=== PATIENT | female | born 1960 | race Asian ===

== ENCOUNTER 2019-01-01 11:54 | Emergency (ER) | payer BC ==
[~2019-01-01] VITALS: Ht 152.4 cm; Wt 81.6 kg
--- NOTE | 2019-01-01 12:00 | NUR ---
ER Nurse Note: Patient brought in to ER by ambulance from home due to fall from ladder. Patient alert and oriented x4 and bedridden. Skin clean and intact. Calm and cooperative. No acute distress noted at this time. Rt ankle bleeding actively and bone and muscle visible. pt c/o only mild pain 3/10.
--- NOTE | 2019-01-01 12:16 | NUR ---
ED Nurse Note: x-ray at bedside.
--- NOTE | 2019-01-01 12:32 | NUR ---
ED Nurse Note: another set of x-ray at bedside.
[2019-01-01] MEDS ORDERED: ceFAZolin 1gm/50ml Premix 50 ML IV ONE (12:45)
[2019-01-01] MEDS ORDERED: HYDROcodone/Acetamin 5/325 tab ORAL ONE (12:45)
[2019-01-01 13:42] LABS: HEMATOCRIT 45.1 % (37.0-47.0); HEMOGLOBIN 14.9 G/DL (12.0-16.0); MEAN CORPUSCULAR VOLUME 88 FL (80-99); PLATELET COUNT 198 K/UL (150-450); RED CELL DISTRIBUTION WIDTH 12.4 % (11.6-14.8); WHITE BLOOD COUNT 17.3 K/UL (4.8-10.8)
[2019-01-01] MEDS ORDERED: Morphine Sulfate 2mg/ml Inj(IV/IM USE ONLY) IVP ONE (13:45)
--- NOTE | 2019-01-01 13:59 | Emergency Room Report ---
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 Patient had injury just prior to arrival. She fell approximately 3 feet she reports having some pain to the right shoulder. She denies loss of consciousness.Patient reports of increased pain to the right shoulder. Pain is worse with movement. She denies loss of consciousness. Denies any neck pain or hitting her head. She denies any prior past medical history she denies any allergies. Allergies: Uncoded Allergies: pcn (Adverse Reaction, Mild, nausea, 01/01/19) Patient History Past Medical History: see triage record Past Surgical History: none Reviewed Nursing Documentation: PMH: Agreed; PSxH: Agreed Nursing Documentation-PMH Past Medical History: No Stated History Review of Systems All Other Systems: negative except mentioned in HPI Physical Exam Vital Signs Date Time Temp Pulse Resp B/P (MAP) Pulse Ox O2 Delivery O2 Flow Rate FiO2 01/01/19 11:55 97.9 67 18 149/89 (109) 98 Room Air Sp02 EP Interpretation: reviewed, normal General Appearance: normal inspection, well appearing, no apparent distress, alert, GCS 15, obese Head: atraumatic ENT: normal ENT inspection, hearing grossly normal, normal voice Neck: normal inspection, full range of motion, supple, no bony tend Respiratory: normal inspection, lungs clear, normal breath sounds, no respiratory distress, no retraction, no wheezing Cardiovascular #1: regular rate, rhythm, no edema Gastrointestinal: normal inspection, normal bowel sounds, non tender, soft, no guarding, no hernia Genitourinary: no CVA tenderness Musculoskeletal: other - deformity to right lower extremity above the ankle with laceration Neurologic: normal inspection, alert, oriented x3, responsive, speech normal Psychiatric: normal inspection, judgement/insight normal, mood/affect normal Skin: other - Laceration 3 cm to the medial right ankle with some oozing of blood. Medical Decision Making Diagnostic Impression: Primary Impression: Status post fall Additional Impressions: Open fracture of distal tibia Open fracture of distal fibula Proximal humerus fracture ER Course . Patient presented for right-sided ankle pain after a fall. Differential diagnosis include was not limited to fracture, fracture dislocation, compartment syndrome, among others. Because of complexity of patient's case laboratory tests and imaging studies were ordered. Patient was noted to have open fracture to the right lower extremity. She was given IV Ancef as well as IV pain medications. Tetanus is up-to-date. Patient was noted to have what appears to be a open right-sided pilon fracture. Patient also was noted to have a nondisplaced right-sided humeral fracture. Fracture was discussed with reservations clerk orthopedics Dr. Sharma. Unable to take care of this fracture type at this facility. Patient was placed in a sling and posterior splint was made in position currently in. Left unrepaired. Patient continued to be patient was noted to have normal movement to her toes and brisk cap refill. Laceration was left open. Patient will need to be transferred for higher level of care due to comminuted open fracture. Patient was discussed with Dr. Bailey for trauma surgeon at [facility]. Patient was endorsed to Dr. Aragon pending final disposition. Labs Test 01/01/19 13:15 White Blood Count 17.3 K/UL (4.8-10.8) Red Blood Count 5.10 M/UL (4.20-5.40) Hemoglobin 14.9 G/DL (12.0-16.0) Hematocrit 45.1 % (37.0-47.0) Mean Corpuscular Volume 88 FL (80-99) Mean Corpuscular Hemoglobin 29.3 PG (27.0-31.0) Mean Corpuscular Hemoglobin Concent 33.1 G/DL (32.0-36.0) Red Cell Distribution Width 12.4 % (11.6-14.8) Platelet Count 198 K/UL (150-450) Mean Platelet Volume 7.1 FL (6.5-10.1) Neutrophils (%) (Auto) % (45.0-75.0) Lymphocytes (%) (Auto) % (20.0-45.0) Monocytes (%) (Auto) % (1.0-10.0) Eosinophils (%) (Auto) % (0.0-3.0) Basophils (%) (Auto) % (0.0-2.0) Differential Total Cells Counted 100 Neutrophils % (Manual) 81 % (45-75) Lymphocytes % (Manual) 14 % (20-45) Monocytes % (Manual) 5 % (1-10) Eosinophils % (Manual) 0 % (0-3) Basophils % (Manual) 0 % (0-2) Band Neutrophils 0 % (0-8) Platelet Estimate Adequate Platelet Morphology Normal Red Blood Cell Morphology Normal Last Vital Signs Date Time Temp Pulse Resp B/P (MAP) Pulse Ox O2 Delivery O2 Flow Rate FiO2 01/01/19 11:55 97.9 67 18 149/89 (109) 98 Room Air Status: unchanged Disposition: XFER SHT-TRM HOSP Condition: Serious Scripts No Active Prescriptions or Reported Meds Referrals: SHAUNA AQUINO (PCP) Seymour Castano MD Jan 01, 2019 13:59
--- NOTE | 2019-01-01 14:16 | Diagnostic Imaging Report ---
Indication: Pain, status post fall Technique: One view of the chest Comparison: none Findings: The heart is enlarged. The lungs and pleural spaces are clear. There are old healed right rib fracture deformities. Impression: No acute process This agrees with the preliminary interpretation provided overnight by [facility].
--- NOTE | 2019-01-01 14:17 | Diagnostic Imaging Report ---
Indication: Trauma, pain, status post fall Technique: 3 views of the right shoulder Comparison: none Findings: There is an oblique fracture of the right humeral head and neck. This is nondisplaced. No other acute fractures. There are old healed right rib fracture deformities also noted Impression: Positive for right humeral fracture This agrees with the preliminary interpretation provided overnight by [facility].
--- NOTE | 2019-01-01 14:21 | Diagnostic Imaging Report ---
Indication: Trauma, pain, status post fall Technique: 3 views of the right ankle Comparison: None Findings: There is a comminuted fracture of the distal tibial diaphysis, extending into the articular surface displaced posteriorly and laterally by one bone width. It is also impacted by at least 1 cm. There is also a comminuted fracture of the distal fibular diaphysis, displaced laterally by 2 bone widths. Gas within the soft tissues indicates this may be a compound fracture Impression: Distal tibial and fibular fractures This agrees with the preliminary interpretation provided overnight by [facility].
[2019-01-01 14:40] LABS: ANION GAP 11 mmol/L (5-15); BLOOD UREA NITROGEN 9 mg/dL (7-18); CALCIUM 8.9 MG/DL (8.5-10.1); CARBON DIOXIDE 25 MMOL/L (21-32); CHLORIDE 106 MMOL/L (98-107); CREATININE 0.7 MG/DL (0.55-1.30); POTASSIUM 3.7 MMOL/L (3.5-5.1); SODIUM 142 MMOL/L (136-145)
[2019-01-01 14:41] LABS: INR 0.9 (0.9-1.1)
[2019-01-01 14:45] LABS: ALANINE AMINOTRANSFERASE 30 U/L (12-78); ALBUMIN 3.7 G/DL (3.4-5.0); ALKALINE PHOSPHATASE 91 U/L (46-116); ASPARTATE AMINO TRANSFERASE 20 U/L (15-37); BILIRUBIN,TOTAL 0.5 MG/DL (0.2-1.0)
--- NOTE | 2019-01-01 15:08 | NUR ---
ED Nurse Note: splint on Rt ankle with ERMD at bedside.
--- NOTE | 2019-01-01 16:29 | NUR ---
ED Nurse Note: Patient resting in bed, in no distress. States that pain is 5/10 after having Morphine earlier. Awaiting bed placement.
[2019-01-01] MEDS ORDERED: Morphine Sulfate 4mg/ml Inj (IV USE ONLY) IVP ONE (17:15)
[2019-01-01 17:28] VITALS: BP 122/60
--- NOTE | 2019-01-01 17:37 | NUR ---
ED Nurse Note: pt medicated for pain increase. vs as noted pt awaiting higher level of care transfer. friend at bs. pt given plan of care updates.
--- NOTE | 2019-01-01 18:27 | NUR ---
ED Nurse Note: pt attempting to void on bedpan, unable to void declines catheterization.
--- NOTE | 2019-01-01 18:28 | NUR ---
ED Nurse Note: pt aware to be TX to [facility] awaiting transfer info to call report to accepting rn
--- NOTE | 2019-01-01 19:11 | NUR ---
ED Nurse Note: report given to s crew here to transport pt to [facility] family with pt. pt with stable vs. . Fernanda at transfer center at [facility] accepting pt report. pt to go to ed at [facility] per fernanda.
[2019-01-01 19:17] VITALS: BP 122/60
== END 2019-01-01 19:19 | disposition short-term general hospital (02) ==
LOC: EDBD 11:54 → EMR 12:30
DX: S42.201A Unspecified fracture of upper end of right humerus, initial encounter for closed fracture (principal); S82.871B Displaced pilon fracture of right tibia, initial encounter for open fracture type I or II; S82.831B Other fracture of upper and lower end of right fibula, initial encounter for open fracture type I or II; W11.XXXA Fall on and from ladder, initial encounter; Z88.0 Allergy status to penicillin; Y93.H9 Activity, other involving exterior property and land maintenance, building and construction; Y92.9 Unspecified place or not applicable
CPT/HCPCS: 36415; 71045; 73030; 73610; 80053; 85007; 85025; 85610; 85730; 86850; 86900; 86901; 93005; 96365; 96375; 96376; 99284; J0690; J2270; J2405